=== PATIENT | female | born 1945 | race Caucasian/White ===

== ENCOUNTER 2019-09-14 12:00 | Inpatient (IN) ==
[2019-09-14] MEDS ORDERED: ACETAMINOPHEN 325 MG TAB PO PRN (12:41)
[2019-09-14] MEDS ORDERED: POLYETHYLENE (MIRALAX) 17 GM PACK PO PRN (12:41)
--- NOTE | 2019-09-14 12:49 | History & Physical Report ---
Date of Service September 14, 2019 Assessment & Plan (1) Atrial fibrillation with rapid ventricular response: This is a 73-year-old female with a PMH of DM II, HTN, COPD, pulmonary HTN, psoriatic arthritis, RODRIGUE and other medical problems listed below who presents from cardiology clinic with Fib with RVR and acute decompensated systolic heart failure. -Progressive dyspnea on exertion as well as chest pain and palpitations with exertion for the past few weeks -Found to have A Fib with RVR with HR 120-140 in clinic -Per Dr. Valdez's recommendations, increasing Lopressor 50mg dose from BID to Q6H for now. Likely to ultimately transition to metoprolol succinate given her reduced LV systolic function -Plan to add cardizem drip if further rate control needed -Started on IV heparin for anticoagulation. Discussed coumadin vs DOAC therapy with patient and daughter, who are unsure at this time. Plan to discuss further with Dr. Hutchison. Will also involve case mgmt to discuss pricing of options -Routine cardiology consult -Monitor on telemetry (2) Heart failure, systolic, with acute decompensation: BLE edema and subjective weight gain for past few weeks. Was started on Lasix 20mg PO daily by PCP -TTE performed in clinic today shows normal LV chamber size with mild concentric LVH with mildly reduced LV systolic function with mild global hypokinesis, EF 40 to 45%. Echo from March 2019 with EF of 60% -Plan for diuresis with 40mg IV Lasix BID while admitted. Strict I&Os, daily weights, low sodium diet (3) Diabetes mellitus, type II: A1c of 6.4 in Sep 2019 -Diet controlled -BSG AC HS, add SSI while in-patient if needed (4) COPD (chronic obstructive pulmonary disease): Stable. Continue Incruse Ellipta, albuterol neb PRN (5) Hypertension: Normotensive. Continue lisinopril, metoprolol dose increased in setting of A Fib with RVR. Holding HCTZ (6) Psoriatic arthritis: Continue Diprolene BID, Protopic PRN (7) Restless leg syndrome: Clonazepam HS PRN DVT Ppx: IV heparin Code status: FULL PCP: Rao Dispo: Admitted to PCU. Discharge planning ordered. Patient seen in collaboration with Dr. Collier. Please see addendum. History of Present Illness Chief Complaint: Chest pain, dyspnea on exertion, palpitations Primary Care Provider: NO PCP This is a 73-year-old female with a PMH of DM II, HTN, COPD, pulmonary HTN, psoriatic arthritis, RODRIGUE and other medical problems listed below who presents from cardiology clinic with Fib with RVR and acute decompensated systolic heart failure. Patient has been feeling poorly for the past month with worsening dyspnea on exertion as well as chest pain and palpitations with exertion for the past few weeks. Also endorsing lower extremity edema for the past few weeks with all of her close feeling tight. Has not been weighing herself. Has been having difficulty completing normal chores at home and has required taking breaks to sit down and rest. Is winded when she walks short distances. Chest pain, palpitations and shortness of breath resolved with rest. Was started on Lasix 20 mg daily a few weeks ago by PCP and was scheduled for outpatient dobutamine stress echo with cardiology today. Upon arrival, patient was found to be in A. fib with RVR in the 120s-140s as well appearing to be fluid overloaded. Patient was offered outpatient treatment with close follow-up verses inpatient and patient opted for admission. Per Dr. Valdez, patient will have Lopressor dose increased to 50mg Q6H with plan to start Cardizem if needed. Will be given 40mg IV lasix BID starting upon arrival for diuresis. Started on IV heparin for anticoagulation to reduce the risk of cardioembolic event. Discussed coumadin vs DOAC therapy with patient and daughter, who are unsure at this time. Plan to discuss further with Dr. Hutchison and will also involve case mgmt to discuss pricing of options. Patient currently feels asymptmatic at rest. Denies any fever, chills, lightheadedness, visual changes, cough, chest pain, palpitations, shortness of breath, nausea, vomiting, abdominal pain, dysuria, diarrhea or constipation. TTE performed in clinic today shows normal LV chamber size with mild concentric LVH with mildly reduced LV systolic function with mild global hypokinesis, EF 40 to 45%. Echo from March 2019 with EF of 60%. Allergies Allergy/AdvReac Type Severity Reaction Status Date / Time meperidine AdvReac Unknown Verified 09/14/19 12:55 Home Medications Home Medications Medication Instructions Recorded Confirmed Type albuterol sulfate 2.5 mg INHALATION Q4H PRN 09/14/19 09/14/19 History aspirin 81 mg PO DAILY 09/14/19 09/14/19 History betamethasone, augmented 1 applic TOPICAL BID 09/14/19 09/14/19 History [Diprolene] cholecalciferol (vitamin D3) 2,000 unit PO DAILY 09/14/19 09/14/19 History clonazepam 0.5 - 1 mg PO HS PRN 09/14/19 09/14/19 History desonide 1 applic TOPICAL BID PRN 09/14/19 09/14/19 History fluticasone propionate 2 spray INTRANASAL BID 09/14/19 09/14/19 History furosemide 20 mg PO DAILY 09/14/19 09/14/19 History hydrochlorothiazide 25 mg PO DAILY 09/14/19 09/14/19 History lisinopril 40 mg PO DAILY 09/14/19 09/14/19 History metoprolol tartrate 50 mg PO BID 09/14/19 09/14/19 History rosuvastatin 10 mg PO DAILY 09/14/19 09/14/19 History tacrolimus [Protopic] 1 applic TOPICAL BID PRN 09/14/19 09/14/19 History umeclidinium [Incruse Ellipta] 1 inh INHALATION DAILY 09/14/19 09/14/19 History Past Med/Surg History Medical History COPD (chronic obstructive pulmonary disease) Diabetes mellitus, type II Hyperlipidemia Hypertension RODRIGUE (obstructive sleep apnea) Psoriatic arthritis Pulmonary HTN Restless leg syndrome Surgical History History of incisional hernia repair History of total hysterectomy Family History Mother Multiple sclerosis Father Heart disease Hypertension Social History Communication Ability: Effective Beliefs That Will Affect Care: None Current Living Situation: Alone Other Information That Helps Us Care for You: No Feels Safe at Home: Yes Safety Concerns: Feels Safe At This Time Smoking Status: Former smoker Number of Years Since Quit: 23 ; Hx Alcohol Use: No Hx Substance Use: No Review of Systems Review of Systems: At least ten systems reviewed and negative except as noted in the HPI. Physical Exam Physical Exam: General Appearance: WD/WN, vitals as above, NAD, sitting up in bed, pleasant, conversing easily Head: normocephalic, atraumatic Eyes: normal inspection, PERRL, conjunctivae normal, anicteric sclerae ENT: external ear and nose normal, oropharynx normal Neck: trachea midline, no thyromegaly normal visual inspection Respiratory: bibasilar crackles, poor air movement throughout lung gifford, no wheeze or rhonchi. Normal insp/exp effort, no accessory muscle use Cardiovascular: irregular rate & rhythm, no murmur appreciated, normal peripheral pulses, 1+ BLE edema. Vessels: no JVD or carotid bruit Chest: normal inspection of chest Abdomen/GI: normal bowel sounds, soft, nontender, no hepatosplenomegaly Extremities/Musculoskeletal: no cyanosis or clubbing, extremities motor strength 5/5 Neurologic: PERRL, EOMI, accommodation nl, no face palsy, no dysarthria, CN's II-XI intact bilaterally and moves all extremities Psychiatric: A+Ox3, euthymic affect Skin: no rashes, normal color, warm/dry Results & Data Laboratory Results Short CBC 09/14/19 Range/Units 12:53 WBC 6.58 (4.8-10.8) K/uL Hgb 12.5 (12.0-16.0) g/dL Hct 39.1 (37-47) % Plt Count 271 (130-400) K/uL BMP 09/14/19 12:53 Sodium 139 Potassium 3.6 Chloride 104 Carbon Dioxide 30 BUN 22 H Creatinine 1.11 Glucose 103 H Calcium 9.2 Liver Function 09/14/19 Range/Units 12:53 Total Bilirubin 0.8 (0.2-1) mg/dl AST 23 (15-37) U/L ALT 21 (12-78) U/L Alkaline Phosphatase 50 (45-117) U/L Albumin 3.8 (3.4-5.0) gm/dl Diagnostic Findings CXR: IMPRESSION: 1. No acute findings. 2. Mild bibasilar opacities which favor atelectasis. 3. Moderate cardiomegaly. ECG Rhythm: atrial fibrillation Code Status & VTE Plan VTE Prophylaxis Plan VTE Prophylaxis will be ordered: Yes Supervising Physician Co-Signing Physician Notes I saw this patient with the physician carpenter's assistant, I participated in the history, physical, review of systems, and physical exam. I reviewed the medications with the patient and the physician carpenter's assistant and helped reconcile the medications. I helped take a detailed family and social history as well. I formulated the assessment and plan personally with the physician carpenter's assistant and went over it with the patient. Physical Exam Gen-AAO x 3, NAD, Afebrile Head-NCAT, EOMI, PERRLA, Anicteric Sclera, No Posterior Pharyngeal Erythema Neck-Supple, No JVD, No Thyromegaly, No Masses, No LAD, No Bruits Lungs-Clear to Auscultation Bilaterally, No Rales, No Rhonchi, No Wheezing, No Crepitus Chest-Irreg/Irreg, No S4, +S1, +S2, No S3, No Murmurs, No Rubs, No Gallops, No Ectopy Abdomen-Soft, Bowel Sounds Present, Non Tender, Non Distended, No Hepatomegaly, No Splenomegaly, No Palpable Masses, No Rebound, No Rigidity, No Guarding Musculoskeletal-Full Range of Motion Bilaterally, No CVAT Extremities-No Cyanosis, No Clubbing, No Edema Nuero-Cranial Nerves II-XII grossly intact, Motor WNL, DTRs WNL, Strength WNL, Non Focal Psych-Normal Mood
[2019-09-14 13:12] LABS: Basophils # (auto) 0.03 K/uL (0-0.2); Basophils % (auto) 0.5 %; Eosinophils # (auto) 0.35 K/uL (0-0.5); Eosinophils % (auto) 5.3 %; Hematocrit (blood only) 39.1 % (37-47); Hemoglobin 12.5 g/dL (12.0-16.0); Lymphocytes # (auto) 2.41 K/uL (1.2-3.4); Lymphocytes % (auto) 36.6 %; Mean Corpuscular Hemoglobin 29.6 pg (25-34); Mean Corpuscular Volume 92.7 fL (80-100); Mean Platelet Volume 9.5 fL (7.4-10.4); Monocytes # (auto) 0.91 K/uL (0.11-0.59); Monocytes % (auto) 13.8 %; Neutrophils # (auto) 2.88 K/uL (1.4-6.5); Neutrophils % (auto) 43.8 %; Platelet Count 271 K/uL (130-400); RDW Standard Deviation 47.2 fL (36.4-46.3); Red Blood Count 4.22 M/uL (4.2-5.4); White Blood Count 6.58 K/uL (4.8-10.8)
--- NOTE | 2019-09-14 13:14 | XRay Report ---
XR chest 1V portable CLINICAL HISTORY: admission COMPARISON STUDY: Chest radiograph October 19, 2011. FINDINGS: Patient is rotated. There is no pneumothorax or pleural effusion. There is no evidence for pulmonary edema. Moderate enlargement of the cardiac silhouette is noted. There are mild bibasilar op acities. IMPRESSION: 1. No acute findings. 2. Mild bibasilar opacities which favor atelectasis. 3. Moderate cardiomegaly. ACT 112: Negative or not required by law. Electronically signed by: Charlie Solitario M.D. 09/14/2019 1:13 PM
[2019-09-14 13:32] LABS: Albumin Level 3.8 gm/dl (3.4-5.0); BUN Creatinine Ratio 19.5 (10-20); Calcium 9.2 mg/dl (8.5-10.1); Creatinine Clr Calc Pharmacy 51.3 ml/min; Est GFR (African American) 57.5; Est GFR (Non-African American) 49.6; Potassium 3.6 mmol/L (3.5-5.1)
[2019-09-14 13:35] LABS: Albumin Globulin Ratio 0.9 (0.9-2); Bilirubin,Total 0.8 mg/dl (0.2-1); Globulin 4.2 gm/dl (2.5-4.0)
[2019-09-14] MEDS: METOPROLOL TARTRATE 50 MG TAB PO SCH ×3 (13:39→20:14)
[2019-09-14] MEDS ORDERED: HEPARIN 25000 UNIT/500 ML D5W IV ONE (13:45)
[2019-09-14] MEDS ORDERED: DESONIDE CR 15 GM TUBE EXT PRN (13:47)
[2019-09-14] MEDS ORDERED: ALBUTEROL 0.083% NEBU SOLN 3 ML VIAL INH PRN (13:47)
[2019-09-14] MEDS ORDERED: HEPARIN IV BOLUS 6,000 UNITS in SYRINGE 0 ML IV STA (13:48)
[2019-09-14] MEDS ORDERED: clonazePAM 0.5 MG TAB PO PRN (14:06)
[2019-09-14] MEDS: HEPARIN SODIUM/DEXTROSE 25,000 UNITS/500 ML BAG IV SCH (14:32)
--- NOTE | 2019-09-14 14:44 | Electrocardiogram Report ---
Test Reason : Blood Pressure : / mmHG Vent. Rate : 111 BPM Atrial Rate : 000 BPM P-R Int : 000 ms QRS Dur : 092 ms QT Int : 362 ms P-R-T Axes : 000 038 -09 degrees QTc Int : 492 ms Atrial fibrillation with rapid ventricular response with premature ventricular or aberrantly conducte d complexes Nonspecific ST and T wave abnormality Abnormal ECG When compared with ECG of 19-OCT-2011 22:52, Atrial fibrillation has replaced Sinus rhythm Nonspecific T wave abnormality, worse in Inferior leads Confirmed by Deyvi Anderson ([id number]) on 09/14/2019 2:44:13 PM Referred By: Srini Valdez Confirmed By:Deyvi Anderson
--- NOTE | 2019-09-14 16:54 | Cardiology Consultation ---
Date of Consultation September 14, 2019 Assessment & Plan (1) Atrial fibrillation with rapid ventricular response: (2) Heart failure, systolic, with acute decompensation: Rate control: Her prior to hospital dose of metoprolol tartrate has been increased to 50 mg 4 times daily. Stroke prophylaxis: Unfractionated heparin, will likely transition to Eliquis if deemed affordable. Patient had a prior resting echocardiogram performed in March 2019 at which time sinus rhythm was present with an ejection fraction of 60-64 percent was present. Mild pulmonary hypertension was noted at that time with estimated pulmonary systolic pressure in the range of 35 mmHg, as compared to 62 mmHg on the present study. Moderate tricuspid regurgitation was previously noted. The pulmonary pretension may be reflective of underlying diastolic dysfunction. The patient does not appear markedly volume overloaded on exam, further assessment treatment will be pursued as her hospitalization develops. History of Present Illness Attending Physician: Jorge Collier DO History of Present Illness Jesica Nance is a 73 year old female seen in cardiology consultation per the request of Janette Weeks PA-C for the evaluation of exertional shortness of breath and newly diagnosed atrial fibrillation with rapid ventricular response. The patient presented to the [facility] today as referred by her PCP for a scheduled dobutamine stress echocardiogram given her recent complaints of exertional shortness of breath. Upon arrival she was found to have atrial fibrillation with rapid ventricular response. The resting echocardiogram was therefore performed and the stress test portion was canceled. She was seen in same-day consultation by Dr. Valdez of our practice. The patient describes having been feeling poorly for the last few weeks with the symptom onset over a month ago with noting severe shortness of breath with walking minimal distances. Her dyspnea has progressed to the point that she was unable to walk without having to stop to catch her breath. She describes an occasional pressure or bandlike sensation around her precordium and into her left shoulder. She notes palpitations with exertion and feeling her heart race. Echocardiogram performed today revealed atrial fibrillation with rapid ventricular response, ejection fraction in the range of 40 to 45% with global left ventricular hypokinesis. 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 Allergies Allergy/AdvReac Type Severity Reaction Status Date / Time meperidine AdvReac Unknown Verified 09/14/19 12:55 Home Medications Home Medications Medication Instructions Recorded Confirmed Type albuterol sulfate 2.5 mg INHALATION Q4H PRN 09/14/19 09/14/19 History aspirin 81 mg PO DAILY 09/14/19 09/14/19 History betamethasone, augmented 1 applic TOPICAL BID 09/14/19 09/14/19 History [Diprolene] cholecalciferol (vitamin D3) 2,000 unit PO DAILY 09/14/19 09/14/19 History clonazepam 0.5 - 1 mg PO HS PRN 09/14/19 09/14/19 History desonide 1 applic TOPICAL BID PRN 09/14/19 09/14/19 History fluticasone propionate 2 spray INTRANASAL BID 09/14/19 09/14/19 History furosemide 20 mg PO DAILY 09/14/19 09/14/19 History hydrochlorothiazide 25 mg PO DAILY 09/14/19 09/14/19 History lisinopril 40 mg PO DAILY 09/14/19 09/14/19 History metoprolol tartrate 50 mg PO BID 09/14/19 09/14/19 History rosuvastatin 10 mg PO DAILY 09/14/19 09/14/19 History tacrolimus [Protopic] 1 applic TOPICAL BID PRN 09/14/19 09/14/19 History umeclidinium [Incruse Ellipta] 1 inh INHALATION DAILY 09/14/19 09/14/19 History Patient History Medical History COPD (chronic obstructive pulmonary disease) Diabetes mellitus, type II Hyperlipidemia Hypertension RODRIGUE (obstructive sleep apnea) Psoriatic arthritis Pulmonary HTN Restless leg syndrome Surgical History History of incisional hernia repair History of total hysterectomy Family History Mother Multiple sclerosis Father Heart disease Hypertension Social History Communication Ability: Effective Beliefs That Will Affect Care: None Current Living Situation: Alone Other Information That Helps Us Care for You: No Feels Safe at Home: Yes Safety Concerns: Feels Safe At This Time Smoking Status: Former smoker Number of Years Since Quit: 23 ; Hx Alcohol Use: No Hx Substance Use: No Physical Exam Physical Exam: Temp Pulse Resp BP Pulse Ox 36.4 C L 62 18 111/57 L 99 09/14/19 15:46 02/13/20 15:46 09/14/19 15:46 09/14/19 15:46 09/14/19 15:46 Constitutional: WD/WN, vitals as above Respiratory: normal respiratory effort, lungs clear to auscultation Cardiovascular: Rate/Rhythm: + tachycardic and + irregularly irregular Heart Sounds: no murmur Vessels: no JVD Extremities: + edema (Trace ankle edema) Gastrointestinal (Abdomen): normal bowel sounds, soft, nontender, no hepatosplenomegaly Neurologic: patellar DTR's 2+ bilat, sensation intact Results & Data ([facility]) Vital Signs (Past 12 Hours) Vital Signs Temp Pulse Resp BP Pulse Ox 09/14/19 15:46 36.4 C L 62 18 111/57 L 99 09/14/19 12:55 36.4 C L 114 H 20 135/89 95 09/14/19 12:41 114 H Diagnostic Findings Summary of transthoracic echocardiogram performed as an outpatient earlier today: The rhythm during the examination was atrial fibrillation with rapid ventricular response. Normal LV chamber size with mild concentric LVH. Mildly reduced LV systolic function with mild global hypokinesis, EF 40 to 45%. Mildly dilated RV chamber with mildly reduced RV systolic function by TAPSE. Moderate mitral regurgitation. Mild tricuspid regurgitation. Moderate biatrial enlargement. Pulmonary hypertension is present with a PA systolic pressure of 62 mm of mercury assuming a RA pressure of 15 mm of mercury with a dilated IVC.
[2019-09-14] MEDS: FLUTICASONE PROPIONATE NA SPR 16 GM BTL NAE SCH (20:14)
[2019-09-14] MEDS: BETAMETHASONE DIP AUG (DIPROLENE) 0.05% CR 15 GM TUBE EXT SCH (20:15)
[2019-09-14 21:23] LABS: Partial Thromboplastin Ratio 2.6
[2019-09-14 21:39] LABS: Partial Thromboplastin Time 69.7 Seconds (21.0-31.0)
[2019-09-14] MEDS: clonazePAM 0.5 MG TAB PO PRN (23:40)
[2019-09-15 04:13] LABS: Hematocrit (blood only) 35.8 % (37-47); Hemoglobin 11.8 g/dL (12.0-16.0); Mean Corpuscular Hemoglobin 29.7 pg (25-34); Mean Corpuscular Volume 90.2 fL (80-100); Mean Platelet Volume 9.2 fL (7.4-10.4); Platelet Count 262 K/uL (130-400); RDW Coefficient of Variation 13.8 % (11.5-14.5); RDW Standard Deviation 45.9 fL (36.4-46.3); Red Blood Count 3.97 M/uL (4.2-5.4); White Blood Count 6.64 K/uL (4.8-10.8)
[2019-09-15 04:30] LABS: BUN Creatinine Ratio 19.3 (10-20); Calcium 8.8 mg/dl (8.5-10.1); Creatinine Clr Calc Pharmacy 49.1 ml/min; Est GFR (African American) 54.5; Potassium 3.8 mmol/L (3.5-5.1)
[2019-09-15 04:34] LABS: Partial Thromboplastin Ratio 2.4
[2019-09-15 04:42] LABS: Partial Thromboplastin Time 64.9 Seconds (21.0-31.0)
[2019-09-15] MEDS: ROSUVASTATIN CALCIUM 10 MG TAB PO SCH (08:01)
[2019-09-15] MEDS: CHOLECALCIFEROL 1,000 UNITS 25 MCG TAB PO SCH (08:01)
[2019-09-15] MEDS: ASPIRIN 81 MG ECTAB PO SCH (08:01)
[2019-09-15] MEDS: UMECLIDINIUM BROMIDE 62.5MCG/BLISTER 7 PUFFS/INHALER INH SCH (08:03)
[2019-09-15] MEDS: FLUTICASONE PROPIONATE NA SPR 16 GM BTL NAE SCH ×2 (08:03→20:24)
[2019-09-15] MEDS: BETAMETHASONE DIP AUG (DIPROLENE) 0.05% CR 15 GM TUBE EXT SCH ×2 (08:04→20:24)
[2019-09-15] MEDS: METOPROLOL TARTRATE 50 MG TAB PO SCH ×4 (08:05→20:23)
[2019-09-15] MEDS ORDERED: lisinopriL 40 MG TAB PO SCH (09:00)
--- NOTE | 2019-09-15 11:41 | Cardiology Progress Note ---
Date of Service September 15, 2019 Assessment & Plan (1) Atrial fibrillation with rapid ventricular response: (2) Heart failure, systolic, with acute decompensation: Echocardiogram performed at [facility] 09/14/2019 while patient was in atrial fibrillation with elevated ventricular response revealed mild concentric left ventricular hypertrophy with mild global left ventricular hypokinesis, qualitative left ventricular ejection fraction in the range of 40-45%, mildly dilated right ventricular chamber size with mildly reduced right ventricular systolic function, moderate mitral vegetation, mild tricuspid regurgitation, and moderate biatrial enlargement. Pulmonary artery hypertension was present with a estimated pulmonary systolic pressure of 62 mmHg, with noted plethoric changes of the inferior vena cava that did not collapse with inspiration. The patient tells me that she initially had a resting echocardiogram performed in March, for exertional shortness of breath. By May,, her symptoms were starting to progress, and then she started feeling acutely worse w ithin the last 2 weeks with associated ankle edema. Her echocardiogram revealed mild pulmonary hypertension in March, with an estimated pulmonary artery systolic pressure 35 mmHg, and 62 mmHg yesterday. She has a history of remote cigarette smoking having quit 23 years ago. She snores and has been diagnosed with obstructive sleep apnea but did not tolerate CPAP therapy. She does not have a history of COPD or emphysema. I would speculate that the pulmonary hypertension may be due to elevated left ventricular filling pressures due to systolic, and diastolic dysfunction in the setting of rapid atrial fibrillation. She is not acutely volume overloaded at present. Stroke prophylaxis: The patient's [id number] score is 3 for age of 65-75, female sex, and DM2 redictating a moderate to high risk of cardioembolic stroke in the setting of atrial fibrillation. And therefore anticoagulation is indicated. I called her pharmacy, [facility], and her [id number] cost for Eliquis 5 mg twice daily is $15 per month. The patient stated this was reasonable. And therefore heparin is going to be discontinued and she will start Eliquis. Rate control: For now continue metoprolol tartrate 50 mg 4 times daily. Reduce prior to hospital dose of lisinopril from 40 mg to 20 mg, and and furosemide 20 mg daily as compared to her prior to hospital dose of HCTZ.. I am lowering the dose of lisinopril to allow increase in her metoprolol dose and the addition of furosemide. We will plan for rhythm control strategy to start off with, and if the patient remains in symptomatic atrial fibrillation after 4 weeks of uninterrupted therapeutic anticoagulation, will consider direct-current cardioversion as an outpatient. Dr Garza assuming rounding on 09/16. Follow up as outpt with Dr Valdez. Subjective Chief complaint: Follow-up shortness of breath, ankle edema Subjective: Patient feeling relatively well, but she notes that she has not been exerting herself and that she has been sitting still in the chair. She is on a unfractionated heparin infusion. Atrial fibrillation with resting ventricular rates in the 90 to 100 bpm range present. Review of Systems Review of Systems: All systems reviewed & are unremarkable except as noted in HPI & below Physical Exam Physical Exam: Temp Pulse Resp BP Pulse Ox 36.8 C 95 H 16 130/62 96 09/15/19 07:45 09/15/19 09:12 09/15/19 07:45 09/15/19 07:45 09/15/19 09:09 Constitutional: WD/WN, vitals as above Respiratory: normal respiratory effort, lungs clear to auscultation Cardiovascular: Rate/Rhythm: regular rhythm Heart Sounds: normal S1 and normal S2 Vessels: no JVD Extremities: no edema Gastrointestinal (Abdomen): normal bowel sounds, soft, nontender, no hepatosplenomegaly Neurologic: PERRL, EOMI, accommodation nl, no face palsy, no dysarthria Results & Data Vital Signs (Past 12 Hours) Vital Signs Temp Pulse Pulse Resp BP Pulse Ox Pulse Ox 09/15/19 09:12 95 H 09/15/19 09:09 96 09/15/19 07:45 36.8 C 75 16 130/62 96 09/15/19 04:06 36.7 C 75 18 110/71 96 Laboratory Results Cardiac Enzymes 09/14/19 Range/Units 12:53 AST 23 (15-37) U/L Coagulation 09/14/19 09/15/19 Range/Units 20:41 03:54 APTT 69.7 H* 64.9 H* (21.0-31.0) Seconds CBC 09/14/19 09/15/19 Range/Units 12:53 03:54 WBC 6.58 6.64 (4.8-10.8) K/uL RBC 4.22 3.97 L (4.2-5.4) M/uL Hgb 12.5 11.8 L (12.0-16.0) g/dL Hct 39.1 35.8 L (37-47) % Plt Count 271 262 (130-400) K/uL Neut # (Auto) 2.88 (1.4-6.5) K/uL Lymph # (Auto) 2.41 (1.2-3.4) K/uL [place] # (Auto) 0.91 H (0.11-0.59) K/uL Eos # (Auto) 0.35 (0-0.5) K/uL Baso # (Auto) 0.03 (0-0.2) K/uL Comprehensive Metabolic Panel 09/14/19 09/15/19 Range/Units 12:53 03:54 Sodium 139 138 (136-145) mmol/L Potassium 3.6 3.8 (3.5-5.1) mmol/L Chloride 104 103 (98-107) mmol/L Carbon Dioxide 30 29 (21-32) mmol/L BUN 22 H 22 H (7-18) mg/dl Creatinine 1.11 1.16 (0.6-1.2) mg/dl Glucose 103 H 111 H (70-99) mg/dl Calcium 9.2 8.8 (8.5-10.1) mg/dl AST 23 (15-37) U/L ALT 21 (12-78) U/L Alkaline Phosphatase 50 (45-117) U/L Total Protein 8.0 (6.4-8.2) gm/dl Albumin 3.8 (3.4-5.0) gm/dl Intake and Output 09/14/19 09/15/19 09/15/19 22:59 06:59 14:59 Intake Total 179.167 / 1095.567 916.4 / 1095.567 54 / 54 Balance 179.167 / 1095.567 916.4 / 1095.567 54 / 54 Intake: IV 179.167 / 351.567 172.4 / 351.567 54 / 54 HEPARIN SODIUM/DEXTROSE 25,000 179.167 / 351.567 172.4 / 351.567 54 / 54 units In 500 ml @ 1,200 UNITS/ HR 24 mls/hr IV .[id number] [facility] Rx #:[id number] Oral 744 / 744 Other: Weight 107.7 kg
[2019-09-15] MEDS: APIXABAN 5 MG TABLET PO SCH ×2 (12:39→20:23)
--- NOTE | 2019-09-15 18:08 | Hospitalist Progress Note ---
Date of Service September 15, 2019 Assessment & Plan (1) Atrial fibrillation with rapid ventricular response: per admitting SVC notes This is a 73-year-old female with a PMH of DM II, HTN, COPD, pulmonary HTN, psoriatic arthritis, RODRIGUE and other medical problems listed below who presents from cardiology clinic with Fib with RVR and acute decompensated systolic heart failure. -- remains in a fib but rate controlled continue Metoprolol 50 QID heparin transitioned to Eliquis continue to monitor (2) Heart failure, systolic, with acute decompensation: per admitting SVC notes BLE edema and subjective weight gain for past few weeks. Was started on Lasix 20mg PO daily by PCP -TTE performed in clinic today shows normal LV chamber size with mild concentric LVH with mildly reduced LV systolic function with mild global hypokinesis, EF 40 to 45%. Echo from March 2019 with EF of 60% -- Lasix 20mg po daily monitor (3) Diabetes mellitus, type II: per admitting SVC notes: A1c of 6.4 in Sep 2019 -Diet controlled -BSG AC HS, add SSI while in-patient if needed (4) COPD (chronic obstructive pulmonary disease): Stable. Continue Incruse Ellipta, albuterol neb PRN (5) Hypertension: Normotensive. -- Continue lisinopril, Holding HCTZ (6) Psoriatic arthritis: Continue Diprolene BID, Protopic PRN (7) Restless leg syndrome: Clonazepam HS PRN Morbidly obese, BMI 44.9 kg/m*m - counseling nutrition consult DVT Ppx: Eliquis Code status: FULL PCP: Rao Dispo: Admitted to PCU. Discharge planning ordered. Admission and Anticipated Discharge Date Admission Date: September 14, 2019 Subjective ff up for a fib in RVR seen resting in chair, comfortable in A fib but rate controlled states she feels improved compared to admission denies chest pain, palpitations, dizziness no SOB no bleeding no other symptoms Review of Systems Review of Systems: All systems reviewed & are unremarkable except as noted in HPI & below Physical Exam Physical Exam: General- oriented x 3, not in distress, speaks in sentences with no effort or accessory muscle use Head- atraumatic Eyes- PERRL, EOMI, anicteric ENT- oropharynx clear Neck- supple, no JVD, no adenopathy, no thyromegaly; carotids +2/2, no bruits appreciated Lungs- clear to auscultation bilaterally, no rales/wheezes Heart- normal rate, irregular irregular rhythm; no murmur, no gallop, no rub appreciated Abdomen- normal bowel sounds, nondistended, soft, nontender, no masses or hepatosplenomegaly Extremities- mild pretibial edema, no calf tenderness; peripheral pulses intact Neuro- alert, oriented x 3; CN 2-12 grossly intact; motor 5/5 bilaterally;sen sation 100% on all extremities; no other gross focal neurologic deficits Skin- warm & dry Results & Data ([facility]) Vital Signs (Past 12 Hours) Vital Signs Temp Pulse Pulse Resp BP BP Pulse Ox 09/15/19 15:45 37.0 C 83 18 122/84 97 09/15/19 12:05 36.9 C 76 18 124/60 95 09/15/19 09:12 95 H 09/15/19 09:09 09/15/19 07:45 36.8 C 75 16 130/62 96 Pulse Ox 09/15/19 15:45 09/15/19 12:05 09/15/19 09:12 09/15/19 09:09 96 09/15/19 07:45 Laboratory Results Laboratory Results - last 24 hr 09/15/19 09/15/19 09/15/19 03:54 03:54 03:54 WBC 6.64 RBC 3.97 L Hgb 11.8 L Hct 35.8 L MCV 90.2 MCH 29.7 MCHC 33.0 RDW Std Deviation 45.9 RDW Coeff of Syed 13.8 Plt Count 262 MPV 9.2 APTT 64.9 H* PTT Ratio 2.4 Sodium 138 Potassium 3.8 Chloride 103 Carbon Dioxide 29 Anion Gap 6.0 BUN 22 H Creatinine 1.16 Est Cr Clr Drug Dosing 49.1 Est GFR ( Amer) 54.5 Est GFR (Non-Af Amer) 47.0 BUN/Creatinine Ratio 19.3 Glucose 111 H POC Glucose Calcium 8.8 09/15/19 09/15/19 09/15/19 07:27 11:42 16:32 WBC RBC Hgb Hct MCV MCH MCHC RDW Std Deviation RDW Coeff of Syed Plt Count MPV APTT PTT Ratio Sodium Potassium Chloride Carbon Dioxide Anion Gap BUN Creatinine Est Cr Clr Drug Dosing Est GFR ( Amer) Est GFR (Non-Af Amer) BUN/Creatinine Ratio Glucose POC Glucose 107 H 84 91 Calcium 09/15/19 20:18 WBC RBC Hgb Hct MCV MCH MCHC RDW Std Deviation RDW Coeff of Syed Plt Count MPV APTT PTT Ratio Sodium Potassium Chloride Carbon Dioxide Anion Gap BUN Creatinine Est Cr Clr Drug Dosing Est GFR ( Amer) Est GFR (Non-Af Amer) BUN/Creatinine Ratio Glucose POC Glucose 118 H Calcium
[2019-09-15] MEDS: clonazePAM 0.5 MG TAB PO PRN (22:37)
[2019-09-16] MEDS: HEPARIN SODIUM/DEXTROSE 25,000 UNITS/500 ML BAG IV SCH (00:18)
[2019-09-16 06:44] LABS: Hemoglobin 12.4 g/dL (12.0-16.0); Mean Corpuscular Hemoglobin 29.4 pg (25-34); Mean Corpuscular Hgb Conc 31.8 g/dL (32-36); Mean Corpuscular Volume 92.4 fL (80-100); Mean Platelet Volume 9.8 fL (7.4-10.4); Platelet Count 261 K/uL (130-400); RDW Standard Deviation 47.3 fL (36.4-46.3); Red Blood Count 4.22 M/uL (4.2-5.4); White Blood Count 6.05 K/uL (4.8-10.8)
[2019-09-16 07:10] LABS: BUN Creatinine Ratio 19.6 (10-20); Calcium 9.7 mg/dl (8.5-10.1); Creatinine Clr Calc Pharmacy 51.4 ml/min; Est GFR (African American) 56.8; Potassium 4.2 mmol/L (3.5-5.1)
--- NOTE | 2019-09-16 07:41 | Electrocardiogram Report ---
Test Reason : Blood Pressure : / mmHG Vent. Rate : 100 BPM Atrial Rate : 000 BPM P-R Int : 000 ms QRS Dur : 092 ms QT Int : 380 ms P-R-T Axes : 000 051 070 degrees QTc Int : 490 ms Atrial fibrillation with premature ventricular or aberrantly conducted complexes Nonspecific ST and T wave abnormality Abnormal ECG When compared with ECG of 14-SEP-2019 13:29, Nonspecific T wave abnormality, improved in Inferior leads Confirmed by Deyvi Anderson ([id number]) on 09/16/2019 7:41:39 AM Referred By: Srini Valdez Confirmed By:Deyvi Anderson
[2019-09-16] MEDS: FLUTICASONE PROPIONATE NA SPR 16 GM BTL NAE SCH ×2 (08:00→20:53)
[2019-09-16] MEDS: FUROSEMIDE 20 MG TAB PO SCH (08:01)
[2019-09-16] MEDS: APIXABAN 5 MG TABLET PO SCH ×2 (08:01→20:52)
[2019-09-16] MEDS: METOPROLOL TARTRATE 50 MG TAB PO SCH ×4 (08:01→20:53)
[2019-09-16] MEDS: UMECLIDINIUM BROMIDE 62.5MCG/BLISTER 7 PUFFS/INHALER INH SCH (08:01)
[2019-09-16] MEDS: ROSUVASTATIN CALCIUM 10 MG TAB PO SCH (08:01)
[2019-09-16] MEDS: lisinopriL 20 MG TAB PO SCH (08:01)
[2019-09-16] MEDS: ASPIRIN 81 MG ECTAB PO SCH (08:01)
[2019-09-16] MEDS: CHOLECALCIFEROL 1,000 UNITS 25 MCG TAB PO SCH (08:02)
--- NOTE | 2019-09-16 10:02 | Hospitalist Progress Note ---
Date of Service September 16, 2019 Assessment & Plan (1) Atrial fibrillation with rapid ventricular response: per admitting SVC notes This is a 73-year-old female with a PMH of DM II, HTN, COPD, pulmonary HTN, psoriatic arthritis, RODRIGUE and other medical problems listed below who presents from cardiology clinic with Fib with RVR and acute decompensated systolic heart failure. -- remains in a fib but rate controlled continue Metoprolol 50 QID heparin transitioned to Eliquis, tolerating well continue to monitor (2) Heart failure, systolic, with acute decompensation: per admitting SVC notes BLE edema and subjective weight gain for past few weeks. Was started on Lasix 20mg PO daily by PCP -TTE performed in clinic today shows normal LV chamber size with mild concentric LVH with mildly reduced LV systolic function with mild global hypokinesis, EF 40 to 45%. Echo from March 2019 with EF of 60% -- clear breath sounds mild lower leg edema- improving -- Lasix 20mg po daily monitor (3) Diabetes mellitus, type II: per admitting SVC notes: A1c of 6.4 in Sep 2019 -Diet controlled -BSG AC HS, add SSI while in-patient if needed (4) COPD (chronic obstructive pulmonary disease): Stable. Continue Incruse Ellipta, albuterol neb PRN -- dyspnea on exertion likely from pulmonary HTN, COPD will check 2 step exercise test on d/c day (5) Hypertension: Normotensive. -- Lisinopril decreased from 40 to 20mg po daily (6) Psoriatic arthritis: Continue Diprolene BID, Protopic PRN (7) Restless leg syndrome: Clonazepam HS PRN Morbidly obese, BMI 44.9 kg/m*m - counseling nutrition consult DVT Ppx: Eliquis Code status: FULL PCP: Rao Dispo: Admitted to PCU. Discharge planning ordered. Admission and Anticipated Discharge Date Admission Date: September 14, 2019 Subjective ff up for a fib seen resting in bedside chair, comfortable states she feels somewhat better than yesterday no chest pain, palpitations, dizziness still has mild dyspnea on exertion no bleeding denies other symptoms Review of Systems Review of Systems: All systems reviewed & are unremarkable except as noted in HPI & below Physical Exam Physical Exam: General- oriented x 3, not in distress, speaks in sentences with no effort or accessory muscle use Eyes- anicteric Neck- no JVD Lungs- clear breath sounds bilaterally, no rales/wheezes Heart- normal rate, irregularly irregular rhythm; no murmurs Abdomen- normal bowel sounds, nondistended, soft, nontender Extremities- mild pretibial edema, no calf tenderness Neuro- alert, oriented x 3; no gross focal neurologic deficits Skin- warm & dry Results & Data ([place]) Vital Signs (Past 12 Hours) Vital Signs Temp Pulse Pulse Resp BP Pulse Ox 09/16/19 08:00 36.4 C L 60 60 20 124/88 96 09/16/19 03:57 36.4 C L 60 18 106/72 97 09/16/19 00:10 36.4 C L 87 18 102/64 97 09/15/19 23:58 96 H Laboratory Results Laboratory Results - last 24 hr 09/15/19 09/15/19 09/15/19 11:42 16:32 20:18 WBC RBC Hgb Hct MCV MCH MCHC RDW Std Deviation RDW Coeff of Syed Plt Count MPV Sodium Potassium Chloride Carbon Dioxide Anion Gap BUN Creatinine Est Cr Clr Drug Dosing Est GFR ( Amer) Est GFR (Non-Af Amer) BUN/Creatinine Ratio Glucose POC Glucose 84 91 118 H Calcium 09/16/19 09/16/19 09/16/19 06:15 06:15 07:24 WBC 6.05 RBC 4.22 Hgb 12.4 Hct 39.0 MCV 92.4 MCH 29.4 MCHC 31.8 L RDW Std Deviation 47.3 H RDW Coeff of Syed 14.0 Plt Count 261 MPV 9.8 Sodium 140 Potassium 4.2 Chloride 105 Carbon Dioxide 29 Anion Gap 6.0 BUN 22 H Creatinine 1.12 Est Cr Clr Drug Dosing 51.4 Est GFR ( Amer) 56.8 Est GFR (Non-Af Amer) 49.0 BUN/Creatinine Ratio 19.6 Glucose 110 H POC Glucose 138 H Calcium 9.7
[2019-09-16] MEDS: BETAMETHASONE DIP AUG (DIPROLENE) 0.05% CR 15 GM TUBE EXT SCH ×2 (10:28→20:51)
--- NOTE | 2019-09-16 14:36 | Cardiology Progress Note ---
Date of Service September 16, 2019 Assessment & Plan (1) Atrial fibrillation with rapid ventricular response: (2) Heart failure, systolic, with acute decompensation: Continue metoprolol 50 mg 4 times daily for rate control. Transition patient to metoprolol succinate 100 mg twice daily at time of discharge. Lasix restarted, 20 mg daily today. Follow daily weight, fluid balance, GFR, and electrolytes. Eliquis 5 mg twice daily long-term. Consider elective external direct-current cardioversion after 4 weeks of adequate anticoagulation. Subjective Patient seen and examined the bedside. Heart rate improved. Telemetry demonstrates atrial fibrillation with average heart rate ranging from 90 to 95 bpm at rest. Patient notes fatigue today. Lower extremity edema improving. Oral furosemide restarted today. Fluid balance +1.1 L over the past 24 hours. Patient denies orthopnea or paroxysmal nocturnal dyspnea. No chest discomfort or heaviness. Review of Systems Review of Systems: All systems reviewed & are unremarkable except as noted in HPI & below Physical Exam Constitutional: well developed and well nourished; no acute distress Respiratory: normal respiratory effort, lungs clear to auscultation Cardiovascular: Rate/Rhythm: + irregularly irregular Heart Sounds: normal S1 and normal S2 Vessels: no JVD Extremities: + edema (Mild, 1+ bilateral pedal and ankle edema.) Results & Data Vital Signs (Past 12 Hours) Vital Signs Temp Pulse Pulse Resp BP Pulse Ox 09/16/19 12:00 36.6 C 60 87 20 115/86 96 09/16/19 08:00 36.4 C L 60 60 20 124/88 96 09/16/19 03:57 36.4 C L 60 18 106/72 97
--- NOTE | 2019-09-16 19:43 | Electrocardiogram Report ---
Test Reason : Blood Pressure : / mmHG Vent. Rate : 098 BPM Atrial Rate : 147 BPM P-R Int : 000 ms QRS Dur : 094 ms QT Int : 366 ms P-R-T Axes : 000 073 083 degrees QTc Int : 467 ms Atrial fibrillation with a competing junctional pacemaker Nonspecific T wave abnormality Abnormal ECG When compared with ECG of 15-SEP-2019 06:33, No significant change was found Confirmed by Quang Castle ([id number]) on 09/16/2019 7:42:51 PM Referred By: Srini Valdez Confirmed By:Quang Castle
[2019-09-16] MEDS: clonazePAM 0.5 MG TAB PO PRN (22:33)
[2019-09-17] MEDS: FLUTICASONE PROPIONATE NA SPR 16 GM BTL NAE SCH ×2 (08:24→21:01)
[2019-09-17] MEDS: ROSUVASTATIN CALCIUM 10 MG TAB PO SCH (08:25)
[2019-09-17] MEDS: BETAMETHASONE DIP AUG (DIPROLENE) 0.05% CR 15 GM TUBE EXT SCH ×2 (08:25→21:03)
[2019-09-17] MEDS: ASPIRIN 81 MG ECTAB PO SCH (08:25)
[2019-09-17] MEDS: METOPROLOL TARTRATE 50 MG TAB PO SCH ×2 (08:25→13:49)
[2019-09-17] MEDS: APIXABAN 5 MG TABLET PO SCH ×2 (08:26→20:59)
[2019-09-17] MEDS: FUROSEMIDE 20 MG TAB PO SCH ×2 (08:26→16:49)
[2019-09-17] MEDS: CHOLECALCIFEROL 1,000 UNITS 25 MCG TAB PO SCH (08:26)
[2019-09-17] MEDS: UMECLIDINIUM BROMIDE 62.5MCG/BLISTER 7 PUFFS/INHALER INH SCH (08:30)
[2019-09-17] MEDS: lisinopriL 20 MG TAB PO SCH (09:23)
--- NOTE | 2019-09-17 16:10 | Cardiology Progress Note ---
Date of Service September 17, 2019 Assessment & Plan (1) Atrial fibrillation with rapid ventricular response: (2) Heart failure, systolic, with acute decompensation: Transition metoprolol tartrate 50 mg 4 times daily to metoprolol succinate 100 mg twice daily this evening. Increase Lasix to 20 mg twice daily. Follow daily weight, electrolytes, fluid balance, and GFR. Eliquis for long-term anticoagulation. Plans for elective external direct-current cardioversion after 4 weeks of adequate anticoagulation. Subjective Patient seen and examined at the bedside. Notes continued fatigue. No significant edema. Denies orthopnea, PND, palpitations, chest discomfort, lightheadedness, dizziness, syncope, or near syncope. Telemetry demonstrates atrial fibrillation with heart rate ranging from 90 to 95 bpm. Fluid balance positive over the past 24 hours. Tolerating diet and medications. No signs/symptoms of GI/ blood loss. Review of Systems Review of Systems: All systems reviewed & are unremarkable except as noted in HPI & below Physical Exam Constitutional: well developed and well nourished; no acute distress Respiratory: normal respiratory effort, lungs clear to auscultation Cardiovascular: Rate/Rhythm: + irregularly irregular Heart Sounds: normal S1 and normal S2 Vessels: no JVD Extremities: + edema (Trace bilateral pedal edema) Gastrointestinal (Abdomen): Inspection/Auscultation: abdomen normal to inspection; abdomen not distended Percussion/Palpation: abdomen soft; abdomen nontender, no guarding and abdomen not rigid Skin: no rashes, warm and dry Neurologic: moves all extremities and awake; no focal motor deficits Psychiatric: A+Ox3, euthymic affect Results & Data Vital Signs (Past 12 Hours) Vital Signs Temp Pulse Pulse Resp BP BP Pulse Ox 09/17/19 14:59 36.5 C 79 18 128/77 97 09/17/19 11:16 36.4 C L 96 H 20 108/66 97 09/17/19 07:01 36.5 C 59 L 18 129/72 96 09/17/19 04:22 36.7 C 87 18 118/60 95
--- NOTE | 2019-09-17 17:27 | Hospitalist Progress Note ---
Date of Service September 17, 2019 Assessment & Plan (1) Atrial fibrillation with rapid ventricular response: per admitting SVC notes This is a 73-year-old female with a PMH of DM II, HTN, COPD, pulmonary HTN, psoriatic arthritis, RODRIGUE and other medical problems listed below who presents from cardiology clinic with Fib with RVR and acute decompensated systolic heart failure. -- remains in a fib but rate controlled transition from Metoprolol tartrate 50 QID to succinate 100mg BID heparin transitioned to Eliquis, tolerating well continue to monitor (2) Heart failure, systolic, with acute decompensation: per admitting SVC notes BLE edema and subjective weight gain for past few weeks. Was started on Lasix 20mg PO daily by PCP -TTE performed in clinic today shows normal LV chamber size with mild concentric LVH with mildly reduced LV systolic function with mild global hypokinesis, EF 40 to 45%. Echo from March 2019 with EF of 60% -- lasix increased from 20 daily to BID monitor (3) Diabetes mellitus, type II: per admitting SVC notes: A1c of 6.4 in Sep 2019 -Diet controlled -BSG AC HS, add SSI while in-patient if needed (4) COPD (chronic obstructive pulmonary disease): Stable. Continue Incruse Ellipta, albuterol neb PRN -- dyspnea on exertion likely from pulmonary HTN, COPD will check 2 step exercise test on d/c day (5) Hypertension: Normotensive. -- Lisinopril decreased from 40 to 20mg po daily (6) Psoriatic arthritis: Continue Diprolene BID, Protopic PRN (7) Restless leg syndrome: Clonazepam HS PRN Morbidly obese, BMI 44.9 kg/m*m - counseling nutrition consult DVT Ppx: Eliquis Code status: FULL PCP: Rao Dispo: Admitted to PCU. Discharge planning ordered. Admission and Anticipated Discharge Date Admission Date: September 14, 2019 Subjective ff up for afib seen resting in chair, comfortable states she feels somewhat improved still reports dyspnea on minimal exertion no chest pain, palpitations, dizziness, nausea no bleeding no other symptoms Review of Systems Review of Systems: All systems reviewed & are unremarkable except as noted in HPI & below Physical Exam Physical Exam: General- oriented x 3, not in distress, speaks in sentences with no effort or accessory muscle use Eyes- anicteric Neck- no JVD Lungs- clear breath sounds bilaterally Heart- normal rate, irregularly irregular rhythm; no murmurs Abdomen- normal bowel sounds, nondistended, soft, nontender Extremities- mild pretibial edema, no calf tenderness Neuro- alert, oriented x 3; no gross focal neurologic deficits Skin- warm & dry Results & Data ([facility]) Vital Signs (Past 12 Hours) Vital Signs Temp Pulse Pulse Resp BP BP Pulse Ox 09/17/19 14:59 36.5 C 79 18 128/77 97 09/17/19 11:16 36.4 C L 96 H 20 108/66 97 09/17/19 07:01 36.5 C 59 L 18 129/72 96 Laboratory Results Laboratory Results - last 24 hr 09/16/19 09/17/19 09/17/19 20:32 07:15 11:17 POC Glucose 106 H 105 H 86 09/17/19 16:28 POC Glucose 102 H
[2019-09-17] MEDS: METOPROLOL SUCC 50MG EXT REL TAB PO SCH (21:00)
[2019-09-17] MEDS: clonazePAM 0.5 MG TAB PO PRN (23:10)
[2019-09-18] MEDS: UMECLIDINIUM BROMIDE 62.5MCG/BLISTER 7 PUFFS/INHALER INH SCH (08:35)
[2019-09-18] MEDS: FUROSEMIDE 20 MG TAB PO SCH (08:36)
[2019-09-18] MEDS: METOPROLOL SUCC 50MG EXT REL TAB PO SCH (08:36)
[2019-09-18] MEDS: APIXABAN 5 MG TABLET PO SCH (08:36)
[2019-09-18] MEDS: ROSUVASTATIN CALCIUM 10 MG TAB PO SCH (08:36)
[2019-09-18] MEDS: CHOLECALCIFEROL 1,000 UNITS 25 MCG TAB PO SCH (08:37)
[2019-09-18] MEDS: lisinopriL 20 MG TAB PO SCH (08:37)
[2019-09-18] MEDS: ASPIRIN 81 MG ECTAB PO SCH (08:37)
[2019-09-18] MEDS: BETAMETHASONE DIP AUG (DIPROLENE) 0.05% CR 15 GM TUBE EXT SCH (08:38)
[2019-09-18] MEDS: FLUTICASONE PROPIONATE NA SPR 16 GM BTL NAE SCH (08:39)
[2019-09-18 11:02] LABS: BUN Creatinine Ratio 22.1 (10-20); Calcium 9.6 mg/dl (8.5-10.1); Creatinine Clr Calc Pharmacy 52.8 ml/min; Est GFR (African American) 58.7; Est GFR (Non-African American) 50.7; Potassium 3.9 mmol/L (3.5-5.1)
--- NOTE | 2019-09-18 14:03 | Cardiology Progress Note ---
Date of Service September 18, 2019 Assessment & Plan (1) Atrial fibrillation with rapid ventricular response: (2) Heart failure, systolic, with acute decompensation: I had a long discussion with the patient and her family regarding the natural history and pathophysiology of atrial fibrillation and decompensated heart failure. Echocardiographic findings of mild LV systolic dysfunction reviewed. Further treatment options discussed including proceeding with transesophageal echo guided cardioversion versus 4 weeks of anticoagulation followed by elective external direct-current cardioversion. Patient feels her functional status has improved considerably since initiation of treatment. She prefers conservative management at this time. Patient will be discharged to home today. Stressed importance of continuing Eliquis 5 mg twice daily uninterrupted for the next 4 weeks. Continue Lasix 20 mg twice daily. Instructed to weigh herself on a daily basis. Sodium restriction advised. Outpatient cardiology follow-up with repeat basic metabolic panel in 1 to 2 weeks. Thank you for allowing to participate in the care of your patient. Subjective Patient seen and examined at the bedside. Dyspnea on exertion unchanged. Denies chest pain or palpitations. No orthopnea or paroxysmal nocturnal dyspnea. Lower extremity edema stable. Denies signs/symptoms of GI/ blood loss. Family present at bedside. Review of Systems Review of Systems: All systems reviewed & are unremarkable except as noted in HPI & below Physical Exam Constitutional: well developed and well nourished; no acute distress Respiratory: normal respiratory effort, lungs clear to auscultation Cardiovascular: Rate/Rhythm: + irregularly irregular Heart Sounds: normal S1 and normal S2 Vessels: no JVD Extremities: + edema (Trace bilateral pedal edema) Gastrointestinal (Abdomen): Inspection/Auscultation: abdomen normal to inspection; abdomen not distended Percussion/Palpation: abdomen soft; abdomen nontender, no guarding and abdomen not rigid Skin: no rashes, warm and dry Neurologic: moves all extremities and awake; no focal motor deficits Psychiatric: A+Ox3, euthymic affect Results & Data Vital Signs (Past 12 Hours) Vital Signs Temp Pulse Pulse Pulse Pulse Pulse Resp 09/18/19 12:33 36.4 C L 87 18 09/18/19 10:58 98 H 81 85 09/18/19 07:44 106 H 09/18/19 07:07 36.6 C 77 17 09/18/19 03:42 36.5 C 67 17 Resp Resp Resp BP Pulse Ox Pulse Ox Pulse Ox 09/18/19 12:33 125/83 95 09/18/19 10:58 22 20 18 96 96 09/18/19 07:44 09/18/19 07:07 136/86 94 09/18/19 03:42 109/60 94 Pulse Ox 09/18/19 12:33 09/18/19 10:58 97 09/18/19 07:44 09/18/19 07:07 09/18/19 03:42
--- NOTE | 2019-09-18 15:39 | Hospitalist Progress Note ---
Date of Service delayed entry date of service as noted below September 18, 2019 Assessment & Plan (1) Atrial fibrillation with rapid ventricular response: per admitting SVC notes This is a 73-year-old female with a PMH of DM II, HTN, COPD, pulmonary HTN, psoriatic arthritis, RODRIGUE and other medical problems listed below who presents from cardiology clinic with Fib with RVR and acute decompensated systolic heart failure. -- remains in a fib but rate controlled transition from Metoprolol tartrate 50 QID to succinate 100mg BID heparin transitioned to Eliquis, tolerating well -- per Coring Machine Operator: "Echocardiographic findings of mild LV systolic dysfunction reviewed. Further treatment options discussed including proceeding with transesophageal echo guided cardioversion versus 4 weeks of anticoagulation followed by elective external direct-current cardioversion." -- repeat CBC and PRP on ff up with PCP in 1 week -- ff up with Cardiology Clinic as scheduled - CHF instructions given (2) Heart failure, systolic, with acute decompensation: per admitting SVC notes BLE edema and subjective weight gain for past few weeks. Was started on Lasix 20mg PO daily by PCP -TTE performed in clinic shows normal LV chamber size with mild concentric LVH with mildly reduced LV systolic function with mild global hypokinesis, EF 40 to 45%. Echo from March 2019 with EF of 60% -- lasix increased from 20 daily to BID euvolemic on discharge -- repeat CBC and PRP on ff up with PCP in 1 week -- ff up with Cardiology Clinic as scheduled -- CHF instructions given (3) Diabetes mellitus, type II: per admitting SVC notes: A1c of 6.4 in Sep 2019 -Diet controlled - (4) COPD (chronic obstructive pulmonary disease): -- Stable. Continue Incruse Ellipta, albuterol neb PRN 2 step exercise test: negative (5) Hypertension: -- Normotensive. -- Lisinopril decreased from 40 to 20mg po daily (6) Psoriatic arthritis: Continue Diprolene BID, Protopic PRN (7) Restless leg syndrome: Clonazepam HS PRN Morbidly obese, BMI 44.9 kg/m*m - counseling nutrition consult DVT Ppx: Eliquis Code status: FULL PCP: Rao Dispo: ff up with PCP in 1 week ff up with Cardiology Clinic as scheduled case and plan of care discussed with patient and her daughter in detail and at length all questions answered they are understanding, agreeable and comfortable with the plan of care Admission and Anticipated Discharge Date Admission Date: September 14, 2019 Subjective ff up for a fib seen resting in bed, comfortable states she feels fine overall less dyspnea no chest pain, palpitations, dizziness no other symptoms states she is ready for discharge Review of Systems Review of Systems: All systems reviewed & are unremarkable except as noted in HPI & below Physical Exam Physical Exam: General- oriented x 3, not in distress, speaks in sentences with no effort or accessory muscle use Eyes- anicteric Neck- no JVD Lungs- clear breath sounds BL Heart- normal rate, irreg irregular rhythm; no murmurs Abdomen- normal bowel sounds, nondistended, soft, nontender Extremities- trace pretibial edema, no calf tenderness Neuro- alert, oriented x 3; no gross focal neurologic deficits Skin- warm & dry [facility] Vital Signs (Past 12 Hours) Vital Signs Temp Pulse Pulse Pulse Pulse Pulse Resp 09/18/19 15:29 36.6 C 78 18 09/18/19 12:33 36.4 C L 87 18 09/18/19 10:58 98 H 81 85 09/18/19 07:44 106 H 09/18/19 07:07 36.6 C 77 17 09/18/19 03:42 36.5 C 67 17 Resp Resp Resp BP BP Pulse Ox Pulse Ox 09/18/19 15:29 124/78 96 09/18/19 12:33 125/83 95 09/18/19 10:58 22 20 18 96 09/18/19 07:44 09/18/19 07:07 136/86 94 09/18/19 03:42 109/60 94 Pulse Ox Pulse Ox 09/18/19 15:29 09/18/19 12:33 09/18/19 10:58 96 97 09/18/19 07:44 09/18/19 07:07 09/18/19 03:42
--- NOTE | 2019-10-03 15:49 | Discharge Summary ---
Date of Service October 03, 2019 Admission HPI Per Admitting Provider This is a 73-year-old female with a PMH of DM II, HTN, COPD, pulmonary HTN, psoriatic arthritis, RODRIGUE and other medical problems listed below who presents from cardiology clinic with Fib with RVR and acute decompensated systolic heart failure. Patient has been feeling poorly for the past month with worsening dyspnea on exertion as well as chest pain and palpitations with exertion for the past few weeks. Also endorsing lower extremity edema for the past few weeks with all of her close feeling tight. Has not been weighing herself. Has been having difficulty completing normal chores at home and has required taking breaks to sit down and rest. Is winded when she walks short distances. Chest pain, palpitations and shortness of breath resolved with rest. Was started on Lasix 20 mg daily a few weeks ago by PCP and was scheduled for outpatient dobutamine stress echo with cardiology today. Upon arrival, patient was found to be in A. fib with RVR in the 120s-140s as well appearing to be fluid overloaded. Patient was offered outpatient treatment with close follow-up verses inpatient and patient opted for admission. Per Dr. Carey, patient will have Lopressor dose increased to 50mg Q6H with plan to start Cardizem if needed. Will be given 40mg IV lasix BID starting upon arrival for diuresis. Started on IV heparin for anticoagulation to reduce the risk of cardioembolic event. Discussed coumadin vs DOAC therapy with patient and daughter, who are unsure at this time. Plan to discuss further with Dr. Hutchison and will also involve case mgmt to discuss pricing of options. Patient currently feels asymptmatic at rest. Denies any fever, chills, lightheadedness, visual changes, cough, chest pain, palpitations, shortness of breath, nausea, vomiting, abdominal pain, dysuria, diarrhea or constipation. T TE performed in clinic today shows normal LV chamber size with mild concentric LVH with mildly reduced LV systolic function with mild global hypokinesis, EF 40 to 45%. Echo from March 2019 with EF of 60%. Admission Exam Per Admitting Provider General Appearance: WD/WN, vitals as above, NAD, sitting up in bed, pleasant, conversing easily Head: normocephalic, atraumatic Eyes: normal inspection, PERRL, conjunctivae normal, anicteric sclerae ENT: external ear and nose normal, oropharynx normal Neck: trachea midline, no thyromegaly normal visual inspection Respiratory: bibasilar crackles, poor air movement throughout lung gifford, no wheeze or rhonchi. Normal insp/exp effort, no accessory muscle use Cardiovascular: irregular rate & rhythm, no murmur appreciated, normal peripheral pulses, 1+ BLE edema. Vessels: no JVD or carotid bruit Chest: normal inspection of chest Abdomen/GI: normal bowel sounds, soft, nontender, no hepatosplenomegaly Extremities/Musculoskeletal: no cyanosis or clubbing, extremities motor strength 5/5 Neurologic: PERRL, EOMI, accommodation nl, no face palsy, no dysarthria, CN's II-XI intact bilaterally and moves all extremities Psychiatric: A+Ox3, euthymic affect Skin: no rashes, normal color, warm/dry Principal Diagnosis Atrial fibrillation with rapid ventricular response Heart failure, systolic, with acute decompensation Discharge Exam General- oriented x 3, not in distress, speaks in sentences with no effort or accessory muscle use Eyes- anicteric Neck- no JVD Lungs- clear breath sounds BL Heart- normal rate, irreg irregular rhythm; no murmurs Abdomen- normal bowel sounds, nondistended, soft, nontender Extremities- trace pretibial edema, no calf tenderness Neuro- alert, oriented x 3; no gross focal neurologic deficits Skin- warm & dry Discharge Data Allergies Allergy/AdvReac Type Severity Reaction Status Date / Time meperidine AdvReac Unknown Verified 09/14/19 12:55 Consultations 09/14/19 12:41 Consult Cardiology Routine 09/14/19 14:40 Consult Case Management - Discharge Planning Routine Hospital Course (1) Atrial fibrillation with rapid ventricular response: per admitting [facility] notes This is a 73-year-old female with a PMH of DM II, HTN, COPD, pulmonary HTN, psoriatic arthritis, RODRIGUE and other medical problems listed below who presents from cardiology clinic with Fib with RVR and acute decompensated systolic heart failure. -- remains in a fib but rate controlled transitioned from Metoprolol tartrate 50 QID to succinate 100mg BID heparin transitioned to Eliquis, tolerating well -- per [facility]: "Echocardiographic findings of mild LV systolic dysfunction reviewed. Further treatment options discussed including proceeding with transesophageal echo guided cardioversion versus 4 weeks of anticoagulation followed by elective external direct-current cardioversion." -- repeat CBC and PRP on ff up with PCP in 1 week -- ff up with Cardiology Clinic as scheduled - CHF instructions given (2) Heart failure, systolic, with acute decompensation: per admitting [facility] notes BLE edema and subjective weight gain for past few weeks. Was started on Lasix 20mg PO daily by PCP -TTE performed in clinic shows normal LV chamber size with mild concentric LVH with mildly reduced LV systolic function with mild global hypokinesis, EF 40 to 45%. Echo from March 2019 with EF of 60% -- lasix increased from 20 daily to BID euvolemic on discharge -- repeat CBC and PRP on ff up with PCP in 1 week -- ff up with Cardiology Clinic as scheduled -- CHF instructions given (3) Diabetes mellitus, type II: per admitting [facility] notes: A1c of 6.4 in Sep 2019 -Diet controlled - (4) COPD (chronic obstructive pulmonary disease): -- Stable. Continue Incruse Ellipta, albuterol neb PRN 2 step exercise test: negative (5) Hypertension: -- Normotensive. -- Lisinopril decreased from 40 to 20mg po daily (6) Psoriatic arthritis: Continue Diprolene BID, Protopic PRN (7) Restless leg syndrome: Clonazepam HS PRN Morbidly obese, BMI 44.9 kg/m*m - counseling nutrition consult DVT Ppx: Eliquis Code status: FULL PCP: Rao Dispo: ff up with PCP in 1 week ff up with Cardiology Clinic as scheduled case and plan of care discussed with patient and her daughter in detail and at length all questions answered they are understanding, agreeable and comfortable with the plan of care Total Time Total Time Spent Total Time Spent (In Minutes): > 30 minutes Discharge Plan Discharge Items Patient Disposition: Home - Self-Care Reason For Visit: AFIB WITH RVR, FLUID OVERLOAD Discharge Diagnosis: ATRIAL FIBRILLATION Activity: As commented below Activity Comment: RESUME ACTIVITY GRADUALLY TOLERATED Lifting: Wait until after follow-up appointment Exercise/Sports: Wait until after follow-up appointment Driving/Machine Use: NO DRIVING UNTIL RE-EVALUATED AND ALLOWED BY PRIMARY CARE PHYSICIAN Non-emergency contact: Primary Care Provider and [facility] Call non-emergency contact if: you have any medication questions, your symptoms worsen and you have a fever Follow-up/Referrals: Srini Carey DO [Physician] - 09/26/19 1:45 pm (Please arrive for your appointment by 1:30 P.M. If you need to reschedule this appointment please call [phone].) Josefina Yeh DO [Primary Care Provider] - 09/22/19 1:25 pm (Please arrive for your appointment by 1:10 P.M. If you need to reschedule this appointment, please call [phone].) Diet: Heart Healthy Fluids: 2000ml (8 cups) Addtl Attending Provider Instructions: PLEASE REVIEW YOUR NEW MEDICATION LIST AND FOLLOW INSTRUCTIONS CAREFULLY. METOPROLOL- for atrial fibrillation ELIQUIS- blood thinner to prevent stroke Lisinopril is being reduced from 40 to 20 mg daily. Lasix is being increased from 20 mg daily to twice a day. PLEASE CALL YOUR PRIMARY CARE PHYSICIAN OR [facility] IF WITH RECURRENCE OR WORSENING OF SYMPTOMS. FOLLOW UP WITH THE STONE SPLITTER- DR. CAREY, IN 1-2 WEEKS. FOLLOW UP WITH YOUR PRIMARY CARE PHYSICIAN IN 1 WEEK. Call your Primary Care doctor if any of the following symptoms or problems start or get worse: Shortness of breath or difficulty breathing Wake up at night short of breath Chest pain Cough Swelling of your hands, feet, or legs More fatigued or tired with your normal activity Palpitations - sudden fast heart beats WEIGHT Weigh yourself every morning after using the bathroom. Use the same scale. Wear the same amount of clothing. Write your weight down on a chart. Call your Primary Care doctor if you gain more than 2-3 pounds in 1-2 days. MEDICATIONS Use this discharge instruction sheet for medication instructions. Take your medications at the time your doctor ordered. Do not skip a dose of your medicines. If you miss a dose of medicine, take it as soon as possible, but DO NOT DOUBLE A DOSE. Read your medicine information when you get home. Know all of the side effects of your medicine. If in doubt, ask your pharmacist Call your Primary Care doctor's office if you have any side effects. Be sure all of your doctors know what medicine and herbs you take (including cold, flu, and herbal medicine). Take the following with you to your follow-up doctor appointments: Weight Chart Medication List List of questions Do not drink excessive alcohol, beer or wine. Who to Call and When: Call 911 or go to the Emergency Room if: If at any time you feel your situation is an emergency You have tightness or pain in your chest that does not go away with rest or Nitroglycerin You are very short of breath even with rest. Pending Studies at Discharge: Yes Studies:: REPEAT BLOODWORK- CBC AND BASIC METABOLIC PROFILE C/O PRIMARY CARE PHYSICIAN ON FF UP WITHIN 1 WEEK Stand-Alone Forms: [facility], Smoking Cessation Medications and DC Order Prescriptions: New metoprolol succinate 50 mg Tablet Extended Release 24 Hr 100 mg PO BID 30 Days Qty: 120 RF: 2 lisinopril 20 mg Tablet 20 mg PO QAM 30 Days Qty: 30 RF: 2 furosemide 20 mg Tablet 20 mg PO BID17 30 Days Qty: 60 RF: 2 Eliquis 5 mg Tablet 5 mg PO BID 30 Days Qty: 60 RF: 2 Continued desonide 0.05 % cream 1 applic TOPICAL BID PRN (Reason: Rash) RF: 0 albuterol sulfate 2.5 mg /3 mL (0.083 %) Solution For Nebulization 2.5 mg INHALATION Q4H PRN (Reason: Shortness Of Breath Or Wheezing) RF: 0 aspirin 81 mg Tablet,Delayed Release (Dr/Ec) 81 mg PO DAILY RF: 0 tacrolimus [Protopic] 0.1 % Ointment 1 applic TOPICAL BID PRN (Reason: Rash) RF: 0 betamethasone, augmented [Diprolene] 0.05 % Ointment 1 applic TOPICAL BID RF: 0 hydrochlorothiazide 25 mg tablet 25 mg PO DAILY RF: 0 fluticasone propionate 50 mcg/actuation spray,suspension 2 spray INTRANASAL BID RF: 0 rosuvastatin 10 mg tablet 10 mg PO DAILY RF: 0 cholecalciferol (vitamin D3) 50 mcg (2,000 unit) Capsule 2,000 unit PO DAILY RF: 0 Incruse Ellipta 62.5 mcg/actuation blister with device 1 inh INHALATION DAILY RF: 0 clonazepam 0.5 mg tablet 0.5 - 1 mg PO HS PRN (Reason: Restless Leg(S)) RF: 0 Discontinued metoprolol tartrate 50 mg Tablet 50 mg PO BID RF: 0 furosemide 20 mg tablet 20 mg PO DAILY RF: 0 lisinopril 40 mg Tablet 40 mg PO DAILY RF: 0 Discharge Orders: Discharge Order (Routine); Ordered 09/18/19 Ordered By: Virgil Ramirez Admission Data Admit Date/Time: 09/14/19 12:27 Attending Provider: Virgil Ramirez Admit Provider: Jorge Collier Primary Care Provider: Josefina Yeh Other Providers: Filiberto Hutchison ; Ronaldo,[facility] Other Interventions: Discharge Summary Assessment (RN) Last Done: 09/18/19 15:47 DC Date/Time DO NOT enter until pt leaves facility: 09/18/19 16:20
== END 2019-09-18 16:20 | disposition home or self-care (01) | DRG 308 ==
LOC: 2S 12:27 → SUATTDRO 12:27